=== PATIENT | male | born 1955 | race Caucasian/White ===

== ENCOUNTER 2017-09-21 11:00 | Outpatient (RCR) | payer OTHER ==
[2016-02-22 15:29] VITALS: BP 140/78
[~2017-09-21 11:00] MED LIST: ASPIR LOW81 MG PO; PRAVASTATIN SOD20 MG PO; RAMIPRIL10 MG PO
== END 2017-09-21 11:30 | disposition home or self-care (01) ==
LOC: PT 11:00
DX: M79.621 Pain in right upper arm (principal)